=== PATIENT | female | born 1970 | race Caucasian/White ===

== ENCOUNTER 2016-12-01 10:22 | Emergency (ER) | payer MEDICAID ==
[~2016-12-01] VITALS: Ht 162.6 cm; Wt 76.8 kg
[2016-12-01 13:20] VITALS: BP 143/80
== END 2016-12-01 13:20 | disposition home or self-care (01) ==
LOC: ED 10:22
DX: L98.9 Disorder of the skin and subcutaneous tissue, unspecified (principal); E66.9 Obesity, unspecified

== ENCOUNTER 2018-01-05 18:32 | Emergency (ER) | payer MEDICAID ==
[~2018-01-05] VITALS: Ht 162.6 cm; Wt 86.2 kg
[2018-01-05 18:40] VITALS: Ht 162.6 cm; Wt 86.2 kg
[2018-01-05 21:04] VITALS: BP 146/80
== END 2018-01-05 21:04 | disposition home or self-care (01) ==
LOC: ED 18:32
DX: S70.361A Insect bite (nonvenomous), right thigh, initial encounter (principal); W57.XXXA Bitten or stung by nonvenomous insect and other nonvenomous arthropods, initial encounter; Y93.89 Activity, other specified; Y92.89 Other specified places as the place of occurrence of the external cause; Y99.8 Other external cause status

== ENCOUNTER 2018-03-17 13:30 | Emergency (ER) | payer OTHER ==
[2018-03-17 14:18] LABS: BASOPHIL % 0.2 % (0-2); PLATELET COUNT 340 x10^3mcL (130-400)
[2018-03-17 14:43] LABS: RED CELL DISTRIBUTION WIDTH 20.2 % (11.5-14.5)
[2018-03-17 14:45] LABS: CALCIUM 8.3 mg/dL (8.5-10.1); CARBON DIOXIDE 26.8 mmol/L (21-32); CHLORIDE SERUM 104 mmol/L (98-107); CREATININE SERUM 0.6 mg/dL (0.6-1.0); GFR1 > 60 mL/min; GLUCOSE SERUM 109 mg/dL (74-106); POTASSIUM SERUM 3.2 mmol/L (3.5-5.1); SODIUM SERUM 138 mmol/L (136-145)
[2018-03-17 14:51] LABS: ALBUMIN 3.7 g/dL (3.4-5.0); ALKALINE PHOSPHATASE 92 U/L (46-116); ALT/SGPT 20 U/L (14-59); AST/SGOT 24 U/L (15-37); BILIRUBIN TOTAL 0.49 mg/dL (0.20-1.00)
[2018-03-17 14:55] LABS: TOTAL PROTEIN, SERUM 8.7 g/dL (6.4-8.2)
[2018-03-17 15:32] LABS: rbc morphology (normal/abnorm) ABNORMAL (NORMAL)
[2018-03-17 15:33] LABS: ovalocyte/elliptocyte 2+; tear drop cell (dacryocyte) 1+
[2018-03-17 15:51] VITALS: BP 131/81
== END 2018-03-17 15:51 | disposition home or self-care (01) ==
LOC: ED 13:30
PROVIDERS: Emergency Medicine
DX: D50.0 Iron deficiency anemia secondary to blood loss (chronic) (principal); I10 Essential (primary) hypertension
CPT/HCPCS: 36415